=== PATIENT | female | born 1970 | race African-American/Black ===

== ENCOUNTER 2024-12-15 01:06 | Emergency (ER) | payer OTHER, MEDICAID ==
[~2024-12-15] VITALS: Ht 167.6 cm; Wt 110.4 kg
[2024-12-15 01:23] VITALS: O2SAT 98
[2024-12-15] MEDS ORDERED: NAPR-1176 MT (01:40)
[2024-12-15] MEDS ORDERED: CYCL10TA21 MT (01:40)
[2024-12-15] MEDS: KETOROLAC 30MG/ML VIAL IM ONE (02:03)
[2024-12-15] MEDS: CYCLOBENZAPRINE 10MG TABLET PO ONE (02:03)
[2024-12-15 02:39] VITALS: BP 143/91; PULSE 68; RESP 18; TEMP 36.5; O2SAT 96
== END 2024-12-15 02:44 | disposition home or self-care (01) ==
LOC: ER 01:06
DX: S40.012A Contusion of left shoulder, initial encounter (principal); M54.2 Cervicalgia; S09.90XA Unspecified injury of head, initial encounter; V43.52XA Car driver injured in collision with other type car in traffic accident, initial encounter; Y93.89 Activity, other specified; Y92.410 Unspecified street and highway as the place of occurrence of the external cause; Y99.8 Other external cause status
CPT/HCPCS: 99283; 73030; 96372; J1885